=== PATIENT | male | born 1955 | race Caucasian/White ===

== ENCOUNTER 2019-08-27 06:08 | Day surgery (SDC) | payer MEDICAID ==
[~2019-08-27] VITALS: Ht 165.1 cm; Wt 111.1 kg
[2019-08-27] MEDS ORDERED: SODIUM CHLORIDE 0.9% 1,000 ML IV SCH (07:05)
[2019-08-27] MEDS ORDERED: HYALURONATE SODIUM 14 MG/ML 0.85ML SYRINGE IO ONE (07:20)
[2019-08-27] MEDS ORDERED: TRIAMCINOLONE ACETONIDE 40MG/ML 1ML VIAL ONE (07:30)
[2019-08-27] MEDS ORDERED: PROPOFOL 200MG/20ML VIAL IV ONE (07:58)
[2019-08-27] MEDS ORDERED: MIDAZOLAM HCL 2 MG/2 ML VIAL ONE (08:03)
[2019-08-27] MEDS ORDERED: LISI2.5T47 PO (09:10)
[2019-08-27] MEDS ORDERED: ASPI-1393 PO (09:10)
[2019-08-27] MEDS ORDERED: CARV3.1242 PO (09:10)
[2019-08-27] MEDS ORDERED: ATOR10TA69 PO (09:10)
[2019-08-27] MEDS ORDERED: ACETAMINOPHEN 500MG TABLET PO NR (09:30)
[2019-08-27] MEDS ORDERED: TETRACAINE 0.5% OPHTH DROPS 4ML ONE (10:00)
[2019-08-27] MEDS ORDERED: LIDOCAINE HCL/PF 2% 20 MG/ML 10ML VIAL ONE (10:00)
[2019-08-27] MEDS ORDERED: PREDNISOLONE ACETATE 1% OPHTH DROPS 5ML ONE (10:00)
[2019-08-27] MEDS ORDERED: NEO/POLYMYX B SULF/DEXAMETH OPHTH OINT 3.5GM ONE (10:00)
[2019-08-27] MEDS ORDERED: BUPIVACAINE HCL/PF 0.75% (7.5MG/ML) 10ML ONE (10:00)
[2019-08-27] MEDS ORDERED: BALANCED SALT IRRIG SOLN 15ML ONE (10:00)
[2019-08-27] MEDS ORDERED: CIPROFLOXACIN 0.3% OPHTH SOLN 2.5ML ONE (10:00)
== END 2019-08-27 10:10 | disposition home or self-care (01) ==
LOC: OR 06:08
PROVIDERS: ATTEND Ophthalmology
DX: H11.001 Unspecified pterygium of right eye (principal); I11.0 Hypertensive heart disease with heart failure; I50.9 Heart failure, unspecified; E66.01 Morbid (severe) obesity due to excess calories; I42.9 Cardiomyopathy, unspecified; R73.03 Prediabetes; Z79.82 Long term (current) use of aspirin; Z79.899 Other long term (current) drug therapy; Z68.41 Body mass index [BMI] 40.0-44.9, adult
CPT/HCPCS: 65426; 82962; J2250; J2704; J3301; J3490

== ENCOUNTER 2019-10-15 05:39 | Day surgery (SDC) | payer MEDICAID ==
[~2019-10-15] VITALS: Ht 165.1 cm; Wt 111.1 kg
[~2019-10-15 05:39] MED LIST: ASPI-1393 PO; ATOR10TA69 PO; CARV3.1242 PO; LISI2.5T47 PO
[2019-10-15] MEDS ORDERED: TRIAMCINOLONE ACETONIDE 40MG/ML 1ML VIAL ONE (08:01)
[2019-10-15] MEDS ORDERED: PROPOFOL 200MG/20ML VIAL IV ONE (08:03)
[2019-10-15] MEDS ORDERED: LACTATED RINGERS 1,000 ML IV SCH (09:00)
== END 2019-10-15 10:18 | disposition home or self-care (01) ==
LOC: OR 05:39
PROVIDERS: ATTEND Ophthalmology
DX: H11.001 Unspecified pterygium of right eye (principal); H11.222 Conjunctival granuloma, left eye; I10 Essential (primary) hypertension; E78.00 Pure hypercholesterolemia, unspecified; E66.01 Morbid (severe) obesity due to excess calories; Z79.82 Long term (current) use of aspirin; Z79.899 Other long term (current) drug therapy; Z68.41 Body mass index [BMI] 40.0-44.9, adult
CPT/HCPCS: 65420; 82962; J2704; J3301

== ENCOUNTER → 2020-05-01 | Outpatient (CLI) | payer MEDICAID ==
[~2020-05-01] MED LIST changes: -ASPI-1393 PO; +ASPI-1497 PO
== END | disposition home or self-care (01) ==
LOC: LAB 08:55
PROVIDERS: ATTEND Ophthalmology
DX: Z03.818 Encounter for observation for suspected exposure to other biological agents ruled out (principal)
CPT/HCPCS: U0003-CS

== ENCOUNTER → 2020-05-05 | Day surgery (SDC) | payer MEDICAID ==
[~2020-05-05] VITALS: Ht 165.1 cm; Wt 111.1 kg
[~2020-05-05] MED LIST changes: +FENTANYL CITRATE/PF 50MCG/ML 2ML VIAL ONE; +LACTATED RINGERS 1,000 ML IV SCH; +MIDAZOLAM HCL 2 MG/2 ML VIAL ONE; +PROPOFOL 200MG/20ML VIAL IV ONE; +TRIAMCINOLONE ACETONIDE 40MG/ML 1ML VIAL ONE
== END | disposition home or self-care (01) ==
LOC: OR 06:18
PROVIDERS: ATTEND Ophthalmology
DX: H11.061 Recurrent pterygium of right eye (principal); I11.0 Hypertensive heart disease with heart failure; I50.9 Heart failure, unspecified; E78.00 Pure hypercholesterolemia, unspecified; Z68.41 Body mass index [BMI] 40.0-44.9, adult; Z79.899 Other long term (current) drug therapy; Z98.890 Other specified postprocedural states; Z79.82 Long term (current) use of aspirin
CPT/HCPCS: 65426; 82962; 88304; J2250; J2704; J3010; J3301